=== PATIENT | male | born 1945 | race Caucasian/White ===

== ENCOUNTER 2021-01-08 22:32 | Inpatient (IN) ==
[2021-01-08] MEDS ORDERED: Morphine 2 MG/ML SYRINGE IV ONE (23:02)
[2021-01-09 00:44] LABS: ABS Monocytes 0.5 10^3/ul (0-0.8); ABS Neutrophils 5.2 10^3/ul (1.5-7.7); Eosinophil % 0.7 %; Hematocrit 34 % (42-52); Hemoglobin 11.3 g/dL (14.0-18.0); Lymphocyte % 14.9 %; Mean Corpuscular HGB Conc 34 g/dL (31-36); Mean Corpuscular Hemoglobin 28 pg (27-31); Mean Corpuscular Volume 84 fL (80-94); Mean Platelet Volume 7.7 fL (7.4-10.4); Nucleated Red Blood Cells % 0.1; Platelet Count 160 10^3/uL (150-450); Red Blood Count 4.01 10^6 /uL (4.18-5.48); Red Cell Distribution Width 20 % (10-15); White Blood Count 6.7 10^3/uL (3.5-10.8)
[2021-01-09 00:52] LABS: Albumin 3.3 g/dL (3.2-5.2); Albumin/Globulin Ratio 1.5 (1-3); Globulin 2.2 g/dL (2-4); INR 1.24 (0.86-1.15); Potassium 4.6 mmol/L (3.5-5.0); Total Bilirubin 0.4 mg/dL (0.2-1.0); Total Protein 5.5 g/dL (6.4-8.9)
[2021-01-09 00:53] LABS: Activated Partial Thrombo Time 31.8 seconds (26.0-38.0)
[2021-01-09 00:54] LABS: Troponin I 0.02 ng/mL (<0.03)
[2021-01-09] MEDS ORDERED: Lactated Ringers 1000 ml BAG 1,000 ML IV ONE (01:25)
[2021-01-09] MEDS ORDERED: Ondansetron 4 mg VIAL 2 MG/ML 2 ml VIAL IV ONE (01:36)
[2021-01-09] MEDS ORDERED: Thiamine 100 MG/ML 2 ml VIAL (200 mg) IM ONE (02:21)
[2021-01-09] MEDS ORDERED: Ondansetron 4 mg VIAL 2 MG/ML 2 ml VIAL IV PRN (02:25)
[2021-01-09] MEDS ORDERED: Morphine 2 MG/ML SYRINGE IV PRN (02:25)
[2021-01-09] MEDS ORDERED: Enoxaparin 40 MG/0.4 ML SYR SUBCUT SCH (03:00)
[2021-01-09 03:14] LABS: Rapid COVID-19 Molecular Undetected (Undetected)
[2021-01-09 06:03] LABS: Urine Appearance Clear; Urine Bilirubin Negative (Negative); Urine Blood 1+ (Negative); Urine Color Yellow; Urine Glucose Negative (Negative); Urine Ketones Negative (Negative); Urine Nitrite Negative (Negative); Urine Protein 1+(30 mg/dL) (Negative); Urine Specific Gravity 1.006 (1.002-1.030); Urine Urobilinogen Negative (Negative)
[2021-01-09 06:12] LABS: Urine Bacteria Absent (Absent); Urine Red Blood Cell Trace(0-2/hpf) (Absent); Urine White Blood Cell Trace(0-5/hpf) (Absent)
[2021-01-09] MEDS ORDERED: ceFAZolin 2 GM in NS PREMIX 2 GM/100 ML BAG IVPB ONE (08:34)
[2021-01-09] MEDS: Multivitamins/Minerals TAB PO SCH (08:42)
[2021-01-09 09:54] LABS: Calcium 8.2 mg/dL (8.6-10.3); Potassium 4.9 mmol/L (3.5-5.0)
[2021-01-10 04:55] LABS: ABS Eosinophils 0.1 10^3/ul (0-0.6); ABS Lymphocytes 0.6 10^3/ul (1.0-4.8); ABS Monocytes 0.6 10^3/ul (0-0.8); ABS Neutrophils 3.3 10^3/ul (1.5-7.7); Eosinophil % 1.2 %; Hematocrit 33 % (42-52); Lymphocyte % 13.2 %; Mean Corpuscular HGB Conc 34 g/dL (31-36); Mean Corpuscular Hemoglobin 28 pg (27-31); Mean Corpuscular Volume 84 fL (80-94); Mean Platelet Volume 7.3 fL (7.4-10.4); Platelet Count 149 10^3/uL (150-450); Red Blood Count 3.91 10^6 /uL (4.18-5.48); Red Cell Distribution Width 20 % (10-15); White Blood Count 4.6 10^3/uL (3.5-10.8)
[2021-01-10 05:21] LABS: Calcium 8.4 mg/dL (8.6-10.3); Potassium 4.8 mmol/L (3.5-5.0)
[2021-01-10] MEDS: Multivitamins/Minerals TAB PO SCH (07:38)
[2021-01-10] MEDS ORDERED: Nicotine PATCH 14 MG/24 HR PATCH TRANSDERM SCH (09:00)
[2021-01-10] MEDS ORDERED: Flu vaccine *QUAD* 2021-22* 0.5 ML SYRINGE IM ONE (09:00)
[2021-01-10] MEDS ORDERED: Perflutren Lipid Microsphere 3 ML VIAL ONE (12:54)
[2021-01-10] MEDS ORDERED: Heparin 5000 UNITS/ML 1 mL VIAL SUBCUT SCH (15:00)
[2021-01-10] MEDS ORDERED: Metoprolol Tartrate 5 mg VIAL 5 ml VIAL (1 mg/ml) IV ONE (22:46)
[2021-01-11] MEDS ORDERED: Metoprolol Tartrate 5 mg VIAL 5 ml VIAL (1 mg/ml) IV ONE (01:18)
[2021-01-11 04:50] VITALS: BP 84/54
[2021-01-11] MEDS ORDERED: Calcium CHLORIDE 10% SYRINGE 1 GM/10 ML ONE (05:10)
[2021-01-11] MEDS ORDERED: Sodium Bicarbonate 8.4% SYR 50 ml SYRINGE ONE ×2 (05:10→05:24)
[2021-01-11] MEDS ORDERED: EPINEPHrine SYR 0.1MG/ML 10 ml SYRINGE ONE ×2 (05:10→05:24)
[2021-01-11 05:20] LABS: Hematocrit 40 % (42-52); Mean Corpuscular HGB Conc 33 g/dL (31-36); Mean Corpuscular Hemoglobin 29 pg (27-31); Mean Corpuscular Volume 88 fL (80-94); Mean Platelet Volume 7.9 fL (7.4-10.4); Platelet Count 199 10^3/uL (150-450); Red Blood Count 4.54 10^6 /uL (4.18-5.48); Red Cell Distribution Width 21 % (10-15)
[2021-01-11 05:31] LABS: Activated Partial Thrombo Time 33.2 seconds (26.0-38.0); INR 1.46 (0.86-1.15)
[2021-01-11 05:44] LABS: ALT 43 U/L (7-52); AST 78 U/L (13-39); Albumin 3.2 g/dL (3.2-5.2); Albumin/Globulin Ratio 1.2 (1-3); Alkaline Phosphatase 45 U/L (35-149); Blood Urea Nitrogen 20 mg/dL (6-24); Calcium 8.8 mg/dL (8.6-10.3); Chloride 97 mmol/L (101-111); Globulin 2.7 g/dL (2-4); Glucose 135 mg/dL (70-100); Sodium 127 mmol/L (135-145); Total Protein 5.9 g/dL (6.4-8.9)
[2021-01-11 05:59] LABS: Anion Gap 19 mmol/L (2-11); CO2 Carbon Dioxide 11 mmol/L (22-32); Potassium 5.3 mmol/L (3.5-5.0); Troponin I 0.03 ng/mL (<0.03)
== END 2021-01-11 05:31 | disposition expired | DRG 535 ==
LOC: ED 22:32 → SSU 01-09 03:37 → SUATTDRO 01-09 03:37 → SSU 01-09 06:14
PROVIDERS: ADMIT Internal Medicine; ATTEND Internal Medicine